=== PATIENT | male | born 1975 | race Caucasian/White ===

== ENCOUNTER 2025-05-16 10:44 | Emergency (ER) | payer SELFPAY ==
--- OUTSIDE RECORDS SUMMARY | 2000-08-05 09:30 | XMS_ITS | Continuity of Care Document ---
Author Organization [facility] Address [address] [place] [address] [address] [place] [address] Phone Care Team Providers Care Cigar Making Supervisor Name Role Phone Nicole Chaidez Unavailable Unavailable Advance Directives Directive Yes / No Effective Date File Name No Information Encounters Encounter Description Practice Location Reason(s) For Visit Diagnoses Date Provider Providers Copied on Encounter [facility], [id number] [place] [address] [address], [place], [place], [id number], [place] tel:[phone] [facility] [place] No Information [address] Rivera. [address] [facility] , [address], [place], [address], [place]. tel:[phone] Family History Family Member Type Diagnosis Age At Onset No Information Payers Payer name Insurance type Covered democrat ID Authoriza tion(s) Arnette Pattern [id number] Social History Type Description Quantity Date Captured Comments Sex Male Smoking Status No Information Chief Complaint And Reason For Visit No Information Reason For Referral Reason For Referral No Information History Of Present Illness Encounter Date Complaint History Of Prese nt Illness No Information Functional Status Date Functional Assessmen t No Information Instructions Date Instruction Additional Infor mation No Information Assessments Type Assessment Date No Information Patient Care Teams Name Effective Dates (start - stop) Status Members No Information
--- OUTSIDE RECORDS SUMMARY | 2000-08-05 09:30 | XMS_ITS | Continuity of Care Document ---
Author Organization [facility] Address [address] [place] [address] [address] [place] [address] Phone Care Team Providers Care Engineer Remote Control Diesel Name Role Phone Nicole Chaidez Unavailable Unavailable Advance Directives Directive Yes / No Effective Date File Name No Information Encounters Encounter Description Practice Location Reason(s) For Visit Diagnoses Date Provider Providers Copied on Encounter [facility], [id number] [place] [address] [address], [place], [place], [id number], [place] tel:[phone] [facility] [place] No Information [address] Rivera. [address] [facility] , [address], [place], [address], [place]. tel:[phone] Family History Family Member Type Diagnosis Age At Onset No Information Payers Payer name Insurance type Covered democrat ID Authoriza tion(s) Arnette Pattern [id number] Social History Type Description Quantity Date Captured [...]
--- NOTE | ~2025-05-16 | CT_ITS ---
CT ABDOMEN AND PELVIS WITHOUT CONTRAST Clinical History: Stone protocol, right side Comparison: None Technique: Unenhanced axial images lung bases to symphysis pubis Coronal, sagittal reformats CT images acquired with automatic exposure control for dose reduction DLP: 308 mGy-cm Findings: Without intravenous contrast, sensitivity for detecting visceral parenchymal abnormalities decreased. Lung bases: Clear. Visualized heart and pericardium: Enlarged. Liver: Enlarged. Steatosis. Gallbladder: Unremarkable. Spleen: Unremarkable. Pancreas: Unremarkable. Adrenal glands: Unremarkable. Kidneys: Right kidney- Hydronephrosis. 5 mm stone proximal ureter A few tiny stones. Left kidney- No hydronephrosis. A few stones, largest 4 mm. Distal esophagus/stomach: Unremarkable. Small bowel loops: Normal caliber and wall thickness. Colon: Apparent areas of wall thickening likely merely underdistention. Normal RLQ appendix. Nodes: No enlarged nodes. Peritoneum: No ascites. No free intraperitoneal air. Urinary bladder: Unremarkable. Prostate: Unremarkable. Bones: No acute bony abnormality. Soft tissues: Small inguinal hernias with fat. Unopacified abdominal aorta: No aneurysmal dilatation. IMPRESSION: 1. Right kidney hydronephrosis due to 5 mm stone proximal ureter. 2. Small bilateral nephrolithiasis. Reviewed, dictated and finalized at location R.
[2025-05-16 10:55] VITALS: BP 173/106; PULSE 81; RESP 18; TEMP 36.4; O2SAT 99
--- NOTE | 2025-05-16 11:36 | ED.ABDPAIN ---
HPI - Abdominal Pain General Chief Complaint: Urogenital-Male Stated Complaint: kidney stone, flank pain Time Seen by Provider: 05/16/25 11:11 Source: patient Mode of arrival: ambulatory Limitations: no limitations History of Present Illness HPI narrative: This is a pleasant 50-year-old male patient with no known past medical history presents to the emergency room apparently ambulatory with steady gait with complaints of having right lower quadrant abdominal pain and right flank pain. Patient states this pain is sharp, constant and of varying intensity. It awakened him from his sleep this morning. He has associated nausea and vomiting. Patient believes he is starting to pass a kidney stone. He has not been able to identify any alleviating factors or exacerbating factors. He denies any urinary burning/urgency/frequency and no noted gross hematuria. He does have decreased urinary stream. No history of abdominal surgeries/recent travel or recent illness. Related Data Allergies Allergy/AdvReac Type Severity Reaction Status Date / Time peanut Allergy Intermediate Unknown Verified 05/16/25 10:58 Exam Const: General: healthy appearing; No no acute distress (Patient appearing to have acute pain distress.) Nutritional Appearance: well nourished Orientation/consciousness: patient oriented x3 Limitations: no limitations HENMT: Head: normal to inspection Mouth: Yes moist mucous membranes Throat: posterior oropharynx normal Eyes: Conjunctivae: conjunctivae normal Pupils: Equal, round and reactive pupils present EOM: EOMs intact bilaterally Neck: Neck: normal visual inspection and no lymphadenopathy Other: Full active range of motion in a simple manner without deficit. No JVD. Chest: Other: Nontender to palpation. No crepitus. Resp: Effort & Inspection: normal respiratory effort Auscultation: clear to auscultation bilaterally Cardio: Rate: regular rate Rhythm: regular rhythm Heart sounds: no murmurs GI: GI Palp: Yes Soft to palpation and Yes Tenderness to palpation present (GI) (Right flank pain/CVA tenderness) Auscultation: normal bowel sounds : General: Yes bladder normal to palpation and Yes CVA tenderness (Right-sided) Back/Spine/Pelvis: Back: CVA tenderness (Right) Skin: General skin exam: normal color Rashes: no rashes Wounds: no wounds Neuro: General: patient oriented x3, moves all extremities, no meningeal signs and no focal motor deficits Speech: normal speech Other: Grossly intact without deficit Extrem: General: normal to inspection, no clubbing, cyanosis or edema and no pedal edema Other: Full active range of motion without any acute motor or sensory deficits. Psych: Mental Status: mental status grossly normal Affect: normal affect Course Course Emergency Course: Diagnosis includes but not limited to: Ureterolithiasis, obstructive uropathy, urinary tract infection, pyelonephritis, cystitis Patient's vital signs notable for elevated blood pressure. Suspect pain response. Labs and imaging obtained. Patient medicated for pain. There is a 5 mm stone in the proximal right ureter causing hydronephrosis. Patient dosed with Flomax, Toradol and fentanyl. Discussed with urology ROBIN, Clarke, and he has deemed pt stable for outpatient follow-up and treatment in the outpatient setting. He advised patient to have pain medications as well as Flomax for home. Patient discharged home at this time stable condition. Vital Signs Vital signs: Vital Signs Temperature 97.6 F 05/16/25 10:55 Pulse Rate 81 05/16/25 10:55 Respiratory Rate 18 05/16/25 10:55 Blood Pressure 173/106 H 05/16/25 10:55 Pulse Oximetry 99 05/16/25 10:55 Oxygen Delivery Room Air 05/16/25 10:55 Temperature 97.6 F 05/16/25 10:55 Pulse Rate 81 05/16/25 10:55 Respiratory Rate 18 05/16/25 10:55 Blood Pressure 173/106 H 05/16/25 10:55 Pulse Oximetry 99 05/16/25 10:55 Oxygen Delivery Room Air 05/16/25 10:55 MDM - Abdominal Pain MDM Narrative Medical decision making narrative: See ED Course Lab Data 05/16/25 11:31 05/16/25 11:31 Labs: Lab Results 05/16/25 05/16/25 Range/Units 11:31 11:33 WBC 8.5 (4.5-10.0) K/mm3 RBC 5.55 (4.6-6.20) M/mm3 Hgb 16.5 (14.0-18.0) g/dL Hct 48.6 (42.0-52.0) % MCV 87.6 (80-100) fl MCH 29.7 (26-34) pg MCHC 34.0 (32-36) g/dl RDW 13.1 (11.5-14.5) % Plt Count 316 (150-375) k/mm3 MPV 9.5 (7.4-10.4) fl Immature Gran % (Auto) 0.2 (0-0.5) % Neut % (Auto) 78.7 H (45.5-73.1) % Lymph % (Auto) 12.7 L (18.3-44.2) % Ocean % (Auto) 7.2 (2.6-8.5) % Eos % (Auto) 0.8 (0-4.4) % Baso % (Auto) 0.4 (0.2-1.2) % Lymph # (Auto) 1.08 (0.9-3.2) K/mm3 Ocean # (Auto) 0.6 (0.1-0.6) K/mm3 Eos # (Auto) 0.1 (0-0.3) K/mm3 Baso # (Auto) 0.0 (0.0-0.1) K/mm3 Abs Immat Gran (auto) 0.02 (0.00-0.031) K/mm3 Absolute Neuts (auto) 6.7 (1.3-6.7) K/mm3 Absolute Nucleated RBC 0.000 (0.0-0.012) K/mm3 Nucleated RBC % 0.0 (0.0-0.2) % Sodium 136 L (137-145) mmol/L Potassium 4.9 (3.4-5.0) mmol/L Chloride 102 (98-107) mmol/L Carbon Dioxide 26 (22-30) mmol/L Anion Gap 8 (4-12) mmol/L BUN 17 (9-20) mg/dL Creatinine 1.18 (0.7-1.3) mg/dL Estim Creat Clear Calc 72 ml/min Estimated GFR > 60 (59 - ) Glucose 127 H (65-110) mg/dL Calcium 9.0 (8.4-10.2) mg/dL Total Bilirubin 0.7 (0.2-1.3) mg/dL AST 46 (17-59) U/L ALT 54 H (6-50) U/L Alkaline Phosphatase 70 (38-126) U/L Total Protein 7.4 (6.3-8.2) g/dL Albumin 4.5 (3.5-5.1) g/dL Lipase 65 (23-300) U/L Urine Color Yellow (Yellow) Urine Appearance Clear (Clear) Urine pH 6.5 (5.0-9.0) Ur Specific [place] 1.024 (1.001-1.035) Urine Protein Trace (Negative) mg/dL Urine Glucose (UA) Negative (Negative) mg/dL Urine Ketones Negative (Negative) mg/dL Ur Blood (Man) 3+ H (Negative) Urine Nitrate Negative (Negative) Urine Bilirubin Negative (Negative) Urine Urobilinogen 0.2 (<2.0) mg/dL Leukocyte Esterase Rfl Negative (Negative) YEISON/UL Urine RBC >100 H (0-2) /hpf Urine WBC 0-5 (0-3) /hpf Ur Squamous Epith Cells None seen (Few) /hpf Urine Bacteria None seen /hpf Urine Casts 0-2 Imaging Data Radiologist's impression: ITS Impressions Abdomen/Pelvis CT 05/16/25 11:50 IMPRESSION: 1. Right kidney hydronephrosis due to 5 mm stone proximal ureter. 2. Small bilateral nephrolithiasis. Discharge Plan Discharge Clinical Impression: Ureterolithiasis Patient Disposition: Home Condition: Stable Instructions: Antibiotic Form Additional Instructions: Thank you for allowing us to evaluate you in the emergency room today. Your workup shows that you have a 5 mm stone in the right ureter proximally. It has not yet started to move. Your evaluated by Urology they state your stable for outpatient follow-up. You're being discharged home with pain medications and Flomax. Please take them as ordered and call for 1st available follow-up appointment with urology. If at any point have new or worsening symptoms return to ER. Patient Language: Zimbabwean Prescriptions: New tamsulosin [Flomax] 0.4 mg capsule 0.4 mg PO DAILY Qty: 30 0RF ketorolac 10 mg tablet 10 mg PO Q6H PRN (Reason: pain) Qty: 20 0RF Rx Instructions: maximum total duration of 5 days from all oral, intranasal, or parenteral formulations hydrocodone-acetaminophen 5-325 mg tablet 1 tablet PO Q4H PRN (Reason: pain) Qty: 20 0RF Follow-up/Referrals: PHYSICIAN NOT ON STAFF,NONSTAFF [Non-Staff] Mick Mir PA [Physician Fire Systems Inspector, Urology] Gumaro Ibrahim MD [Physician, Family Practice] Time of Disposition: 13:02
[2025-05-16] MEDS: SODIUM CHLORIDE 0.9% IV 1,000 ML 999 ML IV CONT (11:44)
[2025-05-16 11:45] LABS: Hematocrit 48.6 % (42.0-52.0); Hemoglobin 16.5 g/dL (14.0-18.0); Immature Granulocyte Percent A 0.2 % (0-0.5); Lymphocytes Absolute Auto 1.08 K/mm3 (0.9-3.2); Mean Corpuscular HGB Conc 34.0 g/dl (32-36); Mean Corpuscular Hemoglobin 29.7 pg (26-34); Mean Corpuscular Volume 87.6 fl (80-100); Nucleated Red Blood Cells Absolute Auto 0.000 K/mm3 (0.0-0.012); Nucleated Red Blood Cells Perc 0.0 % (0.0-0.2); Platelet Count Result 316 k/mm3 (150-375); Red Blood Count 5.55 M/mm3 (4.6-6.20); White Blood Count 8.5 K/mm3 (4.5-10.0)
[2025-05-16] MEDS: fentaNYL CITRATE INJ (*CRX) 100 MCG/2 ML VIAL 50 MCG IV PUSH (11:45)
[2025-05-16] MEDS: ONDANSETRON INJ 4 MG/2 ML VIAL IV PUSH (11:45)
[2025-05-16] MEDS: KETOROLAC 30 MG/ML VIAL (*BKC) IV PUSH (11:45)
[2025-05-16 11:49] LABS: Add Urine Microscopic? YES; Appearance Urine Clear (Clear); Glucose Urine UA Negative (Negative); Leukocyte Esterase Ur Negative LEU/UL (Negative); Nitrate Urine Negative (Negative); Non Pathogenic Casts 0-2; Specific Grav Ur 1.024 (1.001-1.035)
[2025-05-16 12:11] LABS: Alanine Aminotransferase 54 U/L (6-50); Albumin Level 4.5 g/dL (3.5-5.1); Alkaline Phosphatase 70 U/L (38-126); Anion Gap 8 mmol/L (4-12); Aspartate Amino Transferase 46 U/L (17-59); Bilirubin,Total 0.7 mg/dL (0.2-1.3); Blood Urea Nitrogen 17 mg/dL (9-20); Calcium 9.0 mg/dL (8.4-10.2); Carbon Dioxide 26 mmol/L (22-30); Chloride 102 mmol/L (98-107); Estimated CRCL calculation 72 ml/min; Estimated Glomerular Filt Rate > 60; Glucose 127 mg/dL (65-110); Lipase 65 U/L (23-300); Potassium 4.9 mmol/L (3.4-5.0); Sodium 136 mmol/L (137-145); Total Protein 7.4 g/dL (6.3-8.2)
--- OUTSIDE RECORDS SUMMARY | 2025-05-16 12:11 | XMS_ITS | Clinical Summary ---
Author Organization [facility] Address [address] [place] [address] Care Team Providers Care Inside Tester Name Role Phone Zackery Alarcon MD Primary Care Provider Allergies No known active allergies Medications ondansetron 4 MG disintegrating tablet Take 1 tablet (4 mg total) by mouth every 8 (eight) hours as needed for Nausea. 20 tablet Active Social History Tobacco Use Types Packs/Day Years Used Date Smoking Tobacco: Never Smokeless Tobacco: Never Alcohol Use Standard Drinks/Week Comments Yes 0 (1 standard drink = 0.6 oz pur e alcohol) Sex and Gender Information Value Date Recorded Sex Assigned at Not on file Legal Sex Male 7:44 PM CDT Gender Identity Not on file Sexual Orientation Not on file Last Filed Vital Signs Vital Sign Reading Time Taken Comments Blood Pressure 159/88 04/20/2021 10:58 PM CDT Pulse 103 04/20/2021 10:58 PM CDT Temperature 36.6 C (97.8 F) 04/20/2021 6:07 PM CDT Respiratory Rate 18 04/20/2021 10:58 PM CDT Oxygen Saturation 97% 04/20/2021 9:02 PM CDT Inhaled Oxygen Concentration - - Weight 90.7 kg (200 lb) 06/04/2020 6:31 PM SAW OFFBEARER Height 177.8 cm (5' 10) 06/04/2020 6:31 PM SAW OFFBEARER Body Mass Index 28.7 06/04/2020 6:31 PM SAW OFFBEARER Plan of Treatment Health Maintenance Due Date Last Done Comments Colorectal Cancer Screening Colonoscopy (10 Years) 1976 Annual Physical 1979 Hepatitis C 1994 DTaP, Tdap and Td Vaccines ( 1 - Tdap) 1995 Hepatitis B Vaccines (1 of 3 - 19+ 3-dose series) 1995 COVID-19 Vaccine (1 - 2024-2 6 season) 2025 Influenza Adult (#1) 2025 Hepatitis A Vaccines Aged Out No long er eligible based on patient's age to complete this topic Meningococcal B Vaccine Aged Out No l onger eligible based on patient's age to complete this topic Meningococcal Vaccine Aged Out No bethany mellissa eligible based on patient's age to complete this topic Pneumococcal Vaccine: Pediat rics (0 to 5 Years) and At-Risk Patients (6 to 49 Years) Aged Out No longer eligible b ased on patient's age to complete this topic RSV Immunizations Under 20 Months Aged Out No longer eligible based on patient's age to complete this topic Insurance Care Teams Inside Tester Relationship Specialty Start Date End Date Zackery Alarcon MD [address] [place] [id number] PCP - General INTERNAL MEDICINE 05/28/19
--- OUTSIDE RECORDS SUMMARY | 2025-05-16 12:11 | XMS_ITS | Clinical Summary ---
Author Organization [facility] [employer] Address [address] [facility] [place] [address] Care Team Providers Care Program Therapist Name Role Phone Unavailable Primary Care Provider Unavailabl e Source Comments [facility],non-owned Affiliates and Associated Physician Practices is amultiple site organization consisting of ambulatory clinics and hospital sitesin [place], [place], [place] and [place]. This disclosure is being madepursuant to the Care Everywhere program and may not contain all information available regarding this patient. Last updated 18.[facility] Allergies Active Allergy Reactions Criticality Noted Date Comments Peanut-Derived Unknown 02/25/2018 Medications * Be aware that medications may not be up to date on this document. Alwaysverify current medications with the patient. ibuprofen (MOTRIN) 400 MG tablet Take 1 tablet by mouth every 6 hours as needed for Pain 20 tablet 02/25/2018 Active ondansetron, disintegrating, (ZOFRAN ODT) 4 MG tablet Take 1 tablet by mouth every 6 hours as needed for Nausea/Vomiti ng Allow tablet to dissolve on the tongue 10 tablet 02/25/2018 Active Social History Tobacco Use Types Packs/Day Years Used Date Smoking Tobacco: Never Smokeless Tobacco: Never Alcohol Use Standard Drinks/Week Comments Yes 7 (1 standard drink = 0.6 oz pur e alcohol) Sex and Gender Information Value Date Recorded Sex Assigned at Not on file Legal Sex Male 3:10 PM CDT Gender Identity Not on file Sexual Orientation Not on file Last Filed Vital Signs Vital Sign Reading Time Taken Comments Blood Pressure 161/94 02/25/2018 4:30 PM CDT Pulse 100 02/25/2018 3:20 PM CDT Temperature 36.9 C (98.5 F) 02/25/2018 4:30 PM CDT Respiratory Rate - - Oxygen Saturation 94% 02/25/2018 4:30 PM CDT Inhaled Oxygen Concentration - - Weight 95.3 kg (210 lb) 02/25/2018 3:22 PM CDT Height 182.9 cm (6') 02/25/2018 3:22 PM CDT Body Mass Index 28.48 02/25/2018 3:22 PM CDT Plan of Treatment Health Maintenance Due Date Last Done Comments COLOGUARD (AGES 45-75) - COL ON CA SCREENING 1976 COLON MONITORING 1976 COLONOSCOPY - COLON CA SCREENING 1976 CT COLONOGRAPHY - COLON CA SCREENING 1976 Colorectal Cancer Screening 1976 FIT - COLON CA SCREENING 1976 FLEX SIG - COLON CA SCREENING 1976 LIPID TESTING 1976 HIV SCREENING 1991 HEPATITIS C SCREENING 03/29/1994 DTAP/TDAP/TD VACCINES (1 - Tdap) 1995 HEPATITIS B VACCINE (1 of 3 - 19+ 3-dose series) 1995 DEPRESSION SCREENING 07/21/2024 COVID-19 VACCINE (1 - 2023-2 5 season) 2025 INFLUENZA VACCINE (#1) 2025 ZOSTER VACCINE (1 of 2) 2026 HIB VACCINE Aged Out No longer eligi ble based on patient's age to complete this topic HPV VACCINE Aged Out No longer eligi ble based on patient's age to complete this topic MENINGOCOCCAL (Group B) VACC INE SHARED DECISION-MAKING Aged Out No longer eligibl e based on patient's age to complete this topic MENINGOCOCCAL GROUPS A/C/Y/W VACCINE Aged Out No longer eligible b ased on patient's age to complete this topic Insurance [employer]IC
[2025-05-16] MEDS: TAMSULOSIN HCL 0.4 MG CAPSULE PO (12:23)
[2025-05-16 13:13] VITALS: BP 155/90; PULSE 78; RESP 16; O2SAT 99
--- OUTSIDE RECORDS SUMMARY | 2025-05-16 13:30 | XMS_ITS | Clinical Summary ---
Author Organization [facility] Address [address] [place] [address] Care Team Providers Care Mat Maker Name Role Phone Unavailable Primary Care Provider Unavailabl e Source Comments [facility] [place] [facility],non-owned Affiliates and Associated Physician Practices is amultiple site organization consisting of ambulatory clinics and hospital sitesin [place], [place], [place] and [place]. This disclosure is being madepursuant to the Care Everywhere program and may not contain all information available regarding this patient. Last updated 18.[facility] Allergies Active Allergy Reactions Criticality Noted Date [...]
--- OUTSIDE RECORDS SUMMARY | 2025-05-16 13:30 | XMS_ITS | Clinical Summary ---
Author Organization [facility] Address [address] [place] [address] Care Team Providers Care Window Cleaner Name Role Phone Zackery Alarcon MD Primary [...] 90.7 kg (200 lb) 06/04/2020 6:31 PM PLATFORM WORKER Height 177.8 cm (5' 10) 06/04/2020 6:31 PM PLATFORM WORKER Body Mass Index 28.7 06/04/2020 6:31 PM PLATFORM WORKER Plan of Treatment Health Maintenance Due Date [...] to complete this topic Insurance Care Teams Window Cleaner Relationship Specialty Start Date End Date Zackery Alarcon MD [address] [place] [id number] PCP - General INTERNAL MEDICINE 05/28/19
--- NOTE | 2025-05-16 14:06 | P.CONUR_ITS ---
Assessment and Plan Assessment and plan (1) Ureterolithiasis: Code(s): N20.1 - Calculus of ureter Status: Acute Assessment and Plan: - Reviewed CT with pt which demonstrates Right 5 mm proximal ureteral stone - Pain currently well managed - No white count, creatinine stable, urine without concern for infection - Pt good candidate for MET; recommend discharging home with analgesics and tamsulosin and follow up as outpatient in 2-4 weeks Urology Consult Note HPI Date Seen: 05/16/25 Primary Care Provider: DIGITAL CONTENT MARKETING MANAGER PHYSICIAN Consult Narrative Narrative: Pt is a 50 year old M with PMHx of nephrolithiasis who presented to the ED for Right lower abdominal pain found to have Right 5 mm proximal ureteral stone with moderate hydro for whom urology is consulted for management of kidney stone. Pt states that pain began acutely this morning and was associated with one episode of nausea. Since arriving to the ED pain has significantly improved with pain medications and Tylenol. No voiding complaints currently. Has had kidney stones before and each time has passed them on their own. Review of Systems 2 Constitutional: Constitutional: Denies body ache(s), Denies chills and Denies fatigue ENT: Reports Normal hearing present Cardiovascular: Cardiovascular: Denies chest pain Respiratory: Respiratory: Denies cough, Denies dyspnea and Denies wheezing Gastrointestinal: Gastrointestinal: Reports abdominal pain, Reports nausea and Reports vomiting Genitourinary: Genitourinary: Denies hematuria, Denies dysuria and Reports flank pain Musculoskeletal: Musculoskeletal: Reports back pain and Denies myalgias Neurologic: Denies Abnormal speech present and Denies abnormal gait Meds Home Medications and Allergies Home Medications ?Medication ?Instructions ?Recorded ?Confirmed ?Type hydrocodone 5 mg-acetaminophen 325 1 tablet PO Q4H PRN pain #20 tabs 05/16/25 Rx mg tablet ketorolac 10 mg tablet 10 mg PO Q6H PRN pain #20 ta bs 05/16/25 Rx tamsulosin 0.4 mg capsule (Flomax) 0.4 mg PO DAILY #30 caps 05/16/25 Rx Allergies Allergy/AdvReac Type Severity Reaction Status Date / Time peanut Allergy Intermediate Unknown Verified 05/16/25 10:58 Vital Signs Vital Signs - 24 hr 05/16/25 10:55 05/16/25 13:13 Temperature 36.4 C Pulse Rate 81 78 Respiratory Rate 18 16 Blood Pressure 173/106 H 155/90 H Pulse Oximetry 99 99 Oxygen Delivery Room Air Exam 2 Const: General: healthy appearing; No no acute distress (Patient appearing to have acute pain distress.) Nutritional Appearance: well nourished O rientation/consciousness: patient oriented x3 Limitations: no limitations HENMT: Head: normal to inspection Mouth: Yes moist mucous membranes T hroat: posterior oropharynx normal Eyes: Conjunctivae: conjunctivae normal Pupils: Equal, round and reactive pupils present EOM: EOMs intact bilaterally Neck: Neck: normal visual inspection and no lymphadenopathy Other: Full active range of motion in a simple manner without deficit. No JVD. Chest: Other: Nontender to palpation. No crepitus. Resp: Effort & Inspection: normal respiratory effort Auscultation: clear to auscultation bilaterally Cardio: Rate: regular rate Rhythm: regular rhythm Heart sounds: no murmurs GI: GI Palp: Yes Soft to palpation and Yes Tenderness to palpation present (GI) (Right flank pain/CVA tenderness) Auscultation: normal bowel sounds : General: Yes bladder normal to palpation and Yes CVA tenderness (Right- sided) Back/Spine/Pelvis: Back: CVA tenderness (Right) Skin: General skin exam: normal color Rashes: no rashes Wounds: no wounds Neuro: General: patient oriented x3, moves all extremities, no meningeal signs and no focal motor deficits Speech: normal speech Other: Grossly intact without deficit Extrem: General: normal to inspection, no clubbing, cyanosis or edema and no pedal edema Other: Full active range of motion without any acute motor or sensory deficits. Psych: Mental Status: mental status grossly normal Affect: normal affect Results Labs 05/16/25 11:31 05/16/25 11:31 Labs: Short CBC 05/16/25 Range/Units 11:31 WBC 8.5 (4.5-10.0) K/mm3 Hgb 16.5 (14.0-18.0) g/dL Hct 48.6 (42.0-52.0) % Plt Count 316 (150-375) k/mm3 BMP 05/16/25 11:31 Sodium 136 L Potassium 4.9 Chloride 102 Carbon Dioxide 26 BUN 17 Creatinine 1.18 Glucose 127 H Calcium 9.0 Liver Function 05/16/25 Range/Units 11:31 Total Bilirubin 0.7 (0.2-1.3) mg/dL AST 46 (17-59) U/L ALT 54 H (6-50) U/L Alkaline Phosphatase 70 (38-126) U/L Albumin 4.5 (3.5-5.1) g/dL Urine 05/16/25 Range/Units 11:33 Urine Color Yellow (Yellow) Urine Appearance Clear (Clear) Urine pH 6.5 (5.0-9.0) Ur Specific [place] 1.024 (1.001-1.035) Urine Protein Trace (Negative) mg/dL Urine Glucose (UA) Negative (Negative) mg/dL
== END 2025-05-16 13:17 | disposition home or self-care (01) ==
PROVIDERS: Emergency Provider Nurse Practitioner Adult Health
DX: N13.2 Hydronephrosis with renal and ureteral calculous obstruction (principal)
CPT/HCPCS: 36415; 74176; 80053; 81001; 83690; 85025; 96361; 96374; 96375; 99284; A9270; J1885; J2405; J3010; J7030